=== PATIENT | male | born 1995 | race African-American/Black ===

== ENCOUNTER 2022-10-02 09:28 | Emergency (ER) | payer OTHER, SELFPAY ==
[2022-10-02 09:48] VITALS: BP 152/94; PULSE 105; RESP 12; TEMP 37.5; O2SAT 100
--- NOTE | 2022-10-02 10:26 | ED.GENADULT ---
HPI - General Adult General Chief complaint: Eye Problems Stated complaint: Eyes Irritation Source: patient Mode of arrival: ambulatory Limitations: no limitations History of Present Illness HPI narrative: Patient presents for evaluation of left eye irritation since yesterday. He reports associated redness, drainage, itching and pain. denies visual disturbance. He does not wear glasses or contacts. He is not using any medication for his symptoms. He also endorses a sore throat without any other infectious symptoms including but not limited to fever, chills, nausea, vomiting, otalgia, cough, shortness of breath. No recent sick contacts to his knowledge. Related Data Allergies Allergy/AdvReac Type Severity Reaction Status Date / Time No Known Allergies Allergy Verified 10/02/22 09:52 Review of Systems Review of Systems: CONSTITUTIONAL: Denies fever, chills, or sweats. EYES: Reports redness, drainage, itching and pain to the left eye. Denies visual disturbance. ENT: reports sore throat. Denies rhinorrhea, congestion, or otalgia. CARDIOVASCULAR: Denies chest pain, palpitations, or edema. RESPIRATORY: Denies cough or dyspnea. GASTROINTESTINAL: Denies abdominal pain, nausea, vomiting, or diarrhea. GENITOURINARY: Denies dysuria or hematuria. SKIN: Denies rash or itching. MUSCULOSKELETAL: Denies back pain, joint pain, or myalgia. NEUROLOGIC: Denies headache, numbness, dizziness, or weakness. PSYCHIATRIC: Denies anxiety or depression. [facility] Past Medical History Medical History (Updated 10/02/22 @ 10:52 by Franco Bhagat, SHAMIKA, ) No pertinent past medical history Surgical History Surgical History No pertinent past surgical history Family History Family History Mother Family history non-contributory Social History Social History Smoking status: Never smoker Substance use: never Living arrangements: with family Gender identity (if verbalized by the patient): Male Spiritual care concerns: No Exam Narrative: GENERAL: Well-appearing, well-nourished, and in no acute distress. HEAD: Normocephalic, atraumatic. EYES: PERRLA and EOMI. Left conjunctival injection with tearing and yellow drainage noted to the eyelashes. ENT: Nares clear, no rhinorrhea or epistaxis. Mucous membranes moist. Oropharynx without tonsillar hypertrophy exudate or other lesions. Bilateral TMs pearly reese nonbulging NECK: Supple. No adenopathy or masses. No carotid bruits or JVD CHEST: Clear to auscultation. No respiratory distress. No wheezes rales or rhonchi HEART: Regular rate and rhythm. No murmur heard. Normal peripheral pulses. ABDOMEN: Soft, nontender, nondistended, normal active bowel sounds. EXTREMITIES: Normal range of motion. No edema. SKIN: Warm, dry, no rash. NEURO: No focal deficits. Alert and oriented x3. PSYCH: Normal mood and affect. Course Course Emergency Course: This is a 26-year-old male who presented for evaluation of left eye irritation, pain, itching, drainage, redness. He has evidence of conjunctivitis on exam. Will treat with erythromycin ointment. He did mention that he was having a sore throat so strep was obtained was negative. Increase hydration. [id number] agents for symptom management. Follow up with primary provider. Go to the ER for worsening symptoms. Patient in agreement with plan of care per Level of Care: Express Care Visit Vital Signs Vital signs: Vital Signs Temperature 37.5 C 10/02/22 09:48 Pulse Rate 105 H 10/02/22 09:48 Respiratory Rate 12 10/02/22 09:48 Blood Pressure 152/94 H 10/02/22 09:48 Pulse Oximetry 100 10/02/22 09:48 Oxygen Delivery Room Air 10/02/22 09:48 Temperature 37.5 C 10/02/22 09:48 Pulse Rate 105 H 10/02/22 09:48 Respiratory Rate 12 10/02/22
== END 2022-10-02 10:59 | disposition home or self-care (01) ==
PROVIDERS: Emergency Provider Nurse Practitioner
DX: H10.9 Unspecified conjunctivitis (principal); J02.9 Acute pharyngitis, unspecified
CPT/HCPCS: 87081; 87880; 99203; G0463